=== PATIENT | male | born 1960 | race Two or more races ===

== ENCOUNTER 2024-09-27 15:58 | Inpatient (IN) | payer MEDICAID, OTHER ==
[~2024-09-27] VITALS: Ht 172.7 cm; Wt 105.0 kg
[2024-09-27] MEDS: methylPREDNISolone SOD SUCC 125 MG/2 ML VL IV ONE (17:00)
--- NOTE | 2024-09-27 17:09 | ED.PDOC ---
SOB-HPI HPI Comments 64Y M presents to ED via EMS for chief complaint SOB with wheezing. Pt denies chest pain but does report chronic productive cough. He denies fever, or edema. Pt stated symptoms began while he was smoking a cigarette. Allergies include PCN. Chief Complaint: Shortness of Breath Time Seen by MD: 16:50 Primary Care Provider: none Reviewed notes: Medications, Allergies Information Source: Patient, Emergency Med Personnel Mode of Arrival: EMS Brought in by: EMS Severity: Moderate Timing: Days Duration: Since onset Context: At Rest PE Risk Factors: None History of: Other Prehospital treatment: 12 Lead EKG, Oxygen Modifying Factors: Nothing Associated Signs and Symptoms: Wheeze, Cough If cough with SOB: Non-Productive Past Medical History Past Medical History (Other): Schizoaffective disorder, dyslipidemia Surgical History: Unobtainable Family History Family History: Unknown Social History Smoker: Cigarettes Alcohol: Unknown Drugs: Unknown Lives In: Unknown Constitutional: denies: chills, diaphoresis, fatigue, fever, malaise, sweats, weakness, others EENTM: denies: blurred vision, double vision, ear bleeding, ear discharge, ear drainage, ear pain, ear ringing, eye pain, eye redness, hearing loss, mouth pain, mouth swelling, nasal discharge, nose bleeding, nose congestion, nose pain, photophobia, tearing, throat pain, throat swelling, voice changes, others Respiratory: reports: shortness of breath, wheezing; denies: cough, hemoptysis, orthopnea, SOB at rest, SOB with excertion, stridor, others Cardiovascular: denies: chest pain, dizzy spells, diaphoresis, Dyspnea on exertion, edema, irregular heart beat, left arm pain, lightheadedness, palpitations, PND, syncope, others Gastrointestinal: denies: abdomen distended, abdominal pain, blood streaked bowels, constipated, diarrhea, dysphagia, difficulty swallowing, hematemesis, melena, nausea, poor appetite, poor fluid intake, rectal bleeding, rectal pain, vomiting, others Genitourinary: denies: burning, dysuria, flank pain, frequency, hematuria, incontinence, penile discharge, penile sore, pain, testicle pain, testicle swelling, urgency, others Neurological: denies: dizziness, fainting, headache, left sided numbness, left sided weakness, numbness, paresthesia, pre-existing deficit, right sided num bness, right sided weakness, seizure, speech problems, tingling, tremors, weakness, others Musculoskeletal: denies: back pain, gout, joint pain, joint swelling, muscle pain, muscle stiffness, neck pain, others Integumetry: denies: bruises, change in color, change in hair/nails, dryness, laceration, lesions, lumps, rash, wounds, others Allergic/Immunocompromised: denies: Difficulty Healing, Frequent Infections, Hives, Itching, others Hematologic/Lymphatic: denies: anemia, blood clots, easy bleeding, easy bruising, swollen glands, others Endocrine: denies: excessive hunger, excessive sweating, excessive thirst, excessive urination, flushing, intolerance to cold, intolerance to heat, unexplained weight gain, unexplained weight loss, others Psychiatric: denies: anxiety, bipolar disorder, depression, hopeless, panic disorder, schizophrenia, sleepless, suicidal, others All Other Systems: Reviewed and Negative Physical Exam General Appearance: Mild Distress HEENT: Normal ENT Inspection Neck: Full Range of Motion, Normal Inspection Respiratory: No Accessory Muscle Use, Respiratory Distress (Mild), Rhonchi, Wheezing Cardiovascular: No Edema, No JVD, Regular Rate/Rhythm Breast Exam: Deferred Gastrointestinal: Non Tender, Soft Genitalia: Deferred Pelvic: Deferred Rectal: Deferred Extremities: No calf tenderness, Normal inspection, Normal range of motion, Non-tender, No pedal edema Neurologic: Alert, No Motor Deficits, Normal Affect, Normal Mood, No Sensory Deficits Cerebellar Function: NOT DONE Reflexes: NOT DONE Skin: Dry, Normal Color, Warm Lymphatic: NOT DONE EKG EKG : Comments Rhythm strip independently interpreted by me: Sinus rhythm, rate 88, no ectopy. Was a procedure done? Was a procedure done?: No Differential Dx Differential Diagnosis: Asthma, Bronchitis, CHF, COPD, Hyperventilation, Pneumonia, URI X-Ray, Labs, Meds, VS Vital Signs Date Time Temp Pulse Resp B/P (MAP) Pulse Ox O2 Delivery O2 Flow Rate FiO2 09/27/24 18:03 80 09/27/24 18:01 79 14 153/97 (115) 94 09/27/24 17:34 18 93 Room Air* 0 21 21 09/27/24 16:33 83 20 145/82 (103) 96 09/27/24 16:20 98.6 88 20 158/90 (112) 99 Lab Test 09/27/24 19:40 09/27/24 18:39 09/27/24 17:32 Range/Units Lactic Acid Level Pending 2.1 H 0.4-2.0 mmol/L Troponin I High Sensitivity < 3 L < 3 L </=54 ng/L White Blood Count 7.5 4.4-10.8 10^3/uL Red Blood Count 5.51 4.5-5.90 10^6/uL Hemoglobin 16.3 13.5-17.5 g/dL Hematocrit 48.6 41.0-53.0 % Mean Corpuscular Volume 88.3 80.0-100.0 fL Mean Corpuscular Hemoglobin 29.6 28.0-32.0 pg Mean Corpuscular Hemoglobin Concent 33.5 32.0-36.0 g/dL Red Cell Distribution Width 14.2 11.8-14.3 % Platelet Count 126 L 140-450 10^3/uL Mean Platelet Volume 8.2 6.9-10.8 fL Neutrophils (%) (Auto) 53.9 37.0-80.0 % Lymphocytes (%) (Auto) 34.2 10.0-50.0 % Monocytes (%) (Auto) 10.1 0.0-12.0 % Eosinophils (%) (Auto) 1.5 0.0-7.0 % Basophils (%) (Auto) 0.3 0.0-2.0 % Neutrophils # (Auto) 4.0 1.6-8.6 10 ^3/uL Lymphocytes # (Auto) 2.6 0.4-5.4 10 ^3/uL Monocytes # (Auto) 0.8 0-1.3 10 ^3/uL Eosinophils # (Auto) 0.1 0-0.8 10 ^3/uL Basophils # (Auto) 0 0-0.2 10 ^3/uL Nucleated Red Blood Cells 0.1 % Sodium Level 143 136-145 mmol/L Potassium Level 4.1 3.5-5.1 mmol/L Chloride Level 110 H 98-107 mmol/L Carbon Dioxide Level 27 20-31 mmol/L Anion Gap 6 5-15 Blood Urea Nitrogen 12 9-23 mg/dL Creatinine 0.85 0.700-1.30 mg/dL Glomerular Filtration Rate Calc 98 >90 mL/min BUN/Creatinine Ratio 14.1 10.0-20.0 Serum Glucose 98 74-106 mg/dL Calcium Level 9.1 8.7-10.4 mg/dL B-Type Natriuretic Peptide 10.59 0-100 pg/mL Current Medications Medications (Trade) Dose Ordered Sig/Kaye Route Start Time Stop Time Status Last Admin Albuterol (Ventolin Medneb) 5 mg ONCE ONCE NEB 09/27/24 17:00 09/27/24 17:02 DC 09/27/24 17:34 Ipratropium [place] (Atrovent Medneb) 0.5 mg ONCE ONCE NEB 09/27/24 17:00 09/27/24 17:02 DC 09/27/24 17:34 PROCEDURE(s): CXRP - CHEST PORTABLE REASON: sob ORDER NUMBER(s): [id number], ACCESSION NUMBER(s): [id number] CHEST RADIOGRAPH Indication:sob Technique: Single frontal view of the chest was obtained Comparison: None FINDINGS: Lines and Tubes: None Lungs: No focal consolidation. Bronchovascular crowding due to low lung volumes. Pleura: No effusion. No pneumothorax. Cardiomediastinal contours: Unremarkable Bones: No acute osseous abnormality. IMPRESSION: Bronchovascular crowding due to low lung volumes. Underlying mild pulmonary vascular congestion can not be excluded. X-Ray, Labs, Meds, VS Comment 64-year-old male with history of schizoaffective disorder and dyslipidemia presenting with shortness breath after smoking a cigarette Vitals remarkable for BP 158/90, oxygen saturation 93% on room air Exam remarkable for mild respiratory distress, audible wheezes, scattered rhonchi Rhythm strip independently interpreted by me: Sinus rhythm, rate 88, no ectopy. Chest x-ray IMPRESSION: Bronchovascular crowding due to low lung volumes. Underlying mild pulmonary vascular congestion can not be excluded. Patient treated with the following in the ED: Albuterol 5 mg/Atrovent 0.5 mg nebulized Solu-Medrol 125 mg IV and 1 L 0.9 normal saline IV bolus were ordered, however the patient refused. The patient is conserved, so we are awaiting call back from facility conservator for permission to administer IV meds despite patient's refusal. On re-evaluation, patient is sleeping and saturating 90% on room air. He is not in respiratory distress. Other vitals are stable. Plan is to admit the patient for respiratory support. Time of 1ST Reevaluation: 17:20 Reevaluation 1ST: Unchanged Time of 2ND Reevaluation: 20:08 Reevaluation 2ND: Improved Patient Education/Counseling: Diagnosis, Treatment Family Education/Counseling: No Family Present Departure 1 Departure Time of Disposition: 20:08 Impression: Primary Impression: Hypoxia Additional Impression: Bronchospasm with bronchitis, acute Disposition: 09 ADMITTED INPATIENT Admit to: Tele Condition: Guarded Critical Care Note Critical Care Time?: No Stability Stability form required: No Heart Score Heart Score: Heart Score Response (Comments) Value History N/A 0 EKG N/A 0 Age N/A 0 Risk Factors N/A 0 Troponin N/A 0 Total 0 I personally scribed for GWENDOLYN REYES MD ([email or web address]) on 09/27/24 at 17:09. Electronically submitted by Danna Subramanian ([facility] I personally scribed for GWENDOLYN REYES MD ([email or web address]) on 09/27/24 at 19:04. Electronically submitted by Danna Subramanian ([facility]). GWENDOLYN REYES MD Sep 27, 2024 17:09
[2024-09-27] MEDS: IPRATROPIUM BROM 0.5 MG/2.5ML INH SOL NEB ONE (17:34)
[2024-09-27] MEDS: ALBUTEROL SULF 2.5 MG/0.5ML(0.5%) NEB SOLN NEB ONE (17:34)
[2024-09-27 17:45] LABS: Basophils # (auto) 0 10 ^3/uL (0-0.2); Basophils % (auto) 0.3 % (0.0-2.0); Eosinophils # (auto) 0.1 10 ^3/uL (0-0.8); Eosinophils % (auto) 1.5 % (0.0-7.0); Hematocrit 48.6 % (41.0-53.0); Hemoglobin 16.3 g/dL (13.5-17.5); Lymphocytes # (auto) 2.6 10 ^3/uL (0.4-5.4); Lymphocytes % (auto) 34.2 % (10.0-50.0); Mean Corpuscular Hemoglobin 29.6 pg (28.0-32.0); Mean Corpuscular Hgb Conc. 33.5 g/dL (32.0-36.0); Mean Corpuscular Volume 88.3 fL (80.0-100.0); Monocytes # (auto) 0.8 10 ^3/uL (0-1.3); Monocytes % (auto) 10.1 % (0.0-12.0); Neutrophils % (auto) 53.9 % (37.0-80.0); Nucleated Red Blood Cells % 0.1 %; Platelet Count (auto) 126 10^3/uL (140-450); Red Blood Cells 5.51 10^6/uL (4.5-5.90); Red Cell Distribution Width 14.2 % (11.8-14.3); White Blood Cell 7.5 10^3/uL (4.4-10.8)
[2024-09-27 17:52] LABS: Chloride 110 mmol/L (98-107); Potassium 4.1 mmol/L (3.5-5.1); Sodium 143 mmol/L (136-145)
[2024-09-27 17:53] LABS: Anion Gap 6 (5-15); Calcium 9.1 mg/dL (8.7-10.4); Carbon Dioxide 27 mmol/L (20-31)
[2024-09-27 17:58] LABS: BUN/Creatinine Ratio 14.1 (10.0-20.0); Blood Urea Nitrogen 12 mg/dL (9-23); Glucose 98 mg/dL (74-106)
[2024-09-27 18:00] LABS: Lactic Acid w/Reflex 2.1 mmol/L (0.4-2.0)
--- NOTE | 2024-09-27 18:08 | DVH ---
CHEST RADIOGRAPH Indication:sob Technique: Single frontal view of the chest was obtained Comparison: None FINDINGS: Lines and Tubes: None Lungs: No focal consolidation. Bronchovascular crowding due to low lung volumes. Pleura: No effusion. No pneumothorax. Cardiomediastinal contours: Unremarkable Bones: No acute osseous abnormality. IMPRESSION: Bronchovascular crowding due to low lung volumes. Underlying mild pulmonary vascular congestion can not be excluded.
[2024-09-27 19:50] VITALS: PULSE 80; RESP 23; O2SAT 92
[2024-09-27] MEDS: SODIUM CHLORIDE 0.9% 1,000 ML IV ONE (21:12)
[2024-09-27 21:29] LABS: Urine Bacteria None Seen /hpf (None Seen)
[2024-09-27 21:34] LABS: Urine Blood Negative /uL (Negative); Urine Clarity Clear (Clear); Urine Color Light-Yellow (Yellow); Urine Protein, UAD Negative (Negative); Urine Specific Gravity 1.014 (1.001-1.035); Urine Urobilinogen Normal (Negative); Urine WBC <1 /hpf (0 - 3)
[2024-09-28] MEDS ORDERED: NITROGLYCERIN 0.4 MG SL TAB SL PRN (04:30)
[2024-09-28] MEDS ORDERED: MORPHINE SULFATE INJ 2 MG/ml SYRG IV PRN (04:30)
[2024-09-28] MEDS ORDERED: ONDANSETRON HCL 4 MG/2 ML VIAL IV PRN (04:30)
[2024-09-28] MEDS ORDERED: ACETAMINOPHEN 325 MG TAB PO PRN (04:30)
[2024-09-28] MEDS ORDERED: ALBUTEROL SULF 2.5 MG/0.5ML(0.5%) NEB SOLN NEB PRN (04:30)
[2024-09-28] MEDS ORDERED: IPRATROPIUM BROM 0.5 MG/2.5ML INH SOL NEB PRN (04:30)
--- NOTE | 2024-09-28 04:40 | DVHHP2 ---
History of Present Illness Reason for Visit: Shortness of breath History of Present Illness 64-year-old male presents for evaluation of shortness of the breath. Patient presents with a two day history of worsening shortness for breath with associated nonproductive cough. No fever or chills reported. Denies chest pain or palpitations. No GI or symptoms. Past Medical History COPD, dyslipidemia and schizoaffective disorder Past Surgical History None Family History Unknown Smoke: <1 pack per day ALCOHOL: none Drugs: None Review of Systems Review of Systems Review of systems are negative otherwise dressing HPI. Allergies: Coded Allergies: Penicillins (Verified Allergy, Unknown, 09/27/24) Exam Vital Signs Vital Signs Date Time Temp Pulse Resp B/P (MAP) Pulse Ox O2 Delivery O2 Flow Rate FiO2 09/27/24 22:00 77 14 135/95 (108) 94 09/27/24 19:50 Room Air* 0 21 09/27/24 19:50 98.8 98.8 Exam Gen: 64-year-old male in mild distress, obese Skin: Warm, dry, normal color and texture, no rash. HEENT: Normocephalic atraumatic, mucous membranes moist and pink. Neck: Cervical and supraclavicular nodes normal without enlargement, trachea is midline, thyroid gland is normal without masses. Pulmonary: Bilateral wheeze Cardiac: Regular rate and rhythm. No murmur Abdomen: Soft, nontender, nondistended, bowel sounds present all 4 quadrants, no guarding, no rigidity, no organomegaly. Extremities: No cyanosis, clubbing, no edema Neuro: Cranial nerves II through XII grossly intact, normal affect and speech, no focal motor deficits. Labs/Xrays ORDERING PHYSICIAN: GWENDOLYN REYES MD PROCEDURE(s): CXRP - CHEST PORTABLE REASON: sob ORDER NUMBER(s): [id number], ACCESSION NUMBER(s): [id number] CHEST RADIOGRAPH Indication:sob Technique: Single frontal view of the chest was obtained Comparison: None FINDINGS: Lines and Tubes: None Lungs: No focal consolidation. Bronchovascular crowding due to low lung volumes. Pleura: No effusion. No pneumothorax. Cardiomediastinal contours: Unremarkable Bones: No acute osseous abnormality. IMPRESSION: Bronchovascular crowding due to low lung volumes. Underlying mild pulmonary vascular congestion can not be excluded. Labs Test 09/27/24 20:41 09/27/24 19:40 09/27/24 18:39 09/27/24 17:32 Range/Units Urine Color Light-yellow Yellow Urine Clarity Clear Clear Urine pH 6.0 5.0-9.0 Urine Specific Stacy 1.014 1.001-1.035 Urine Protein Negative Negative Urine Ketones Negative Negative Urine Blood Negative Negative /uL Urine Nitrite Negative Negative Urine Bilirubin Negative Negative Urine Urobilinogen Normal Negative mg/dL Urine Leukocyte Esterase Negative Negative /uL Urine RBC <1 0 - 3 /hpf Urine WBC <1 0 - 3 /hpf Urine Squamous Epithelial Cells None seen <5 /hpf Urine Bacteria None seen None Seen /hpf Urine Glucose Normal Normal mg/dL Lactic Acid Level 2.4 *H 0.4-2.0 mmol/L Troponin I High Sensitivity < 3 L </=54 ng/L White Blood Count 7.5 4.4-10.8 10^3/uL Red Blood Count 5.51 4.5-5.90 10^6/uL Hemoglobin 16.3 13.5-17.5 g/dL Hematocrit 48.6 41.0-53.0 % Mean Corpuscular Volume 88.3 80.0-100.0 fL Mean Corpuscular Hemoglobin 29.6 28.0-32.0 pg Mean Corpuscular Hemoglobin Concent 33.5 32.0-36.0 g/dL Red Cell Distribution Width 14.2 11.8-14.3 % Platelet Count 126 L 140-450 10^3/uL Mean Platelet Volume 8.2 6.9-10.8 fL Neutrophils (%) (Auto) 53.9 37.0-80.0 % Lymphocytes (%) (Auto) 34.2 10.0-50.0 % Monocytes (%) (Auto) 10.1 0.0-12.0 % Eosinophils (%) (Auto) 1.5 0.0-7.0 % Basophils (%) (Auto) 0.3 0.0-2.0 % Neutrophils # (Auto) 4.0 1.6-8.6 10 ^3/uL Lymphocytes # (Auto) 2.6 0.4-5.4 10 ^3/uL Monocytes # (Auto) 0.8 0-1.3 10 ^3/uL Eosinophils # (Auto) 0.1 0-0.8 10 ^3/uL Basophils # (Auto) 0 0-0.2 10 ^3/uL Nucleated Red Blood Cells 0.1 % Sodium Level 143 136-145 mmol/L Potassium Level 4.1 3.5-5.1 mmol/L Chloride Level 110 H 98-107 mmol/L Carbon Dioxide Level 27 20-31 mmol/L Anion Gap 6 5-15 Blood Urea Nitrogen 12 9-23 mg/dL Creatinine 0.85 0.700-1.30 mg/dL Glomerular Filtration Rate Calc 98 >90 mL/min BUN/Creatinine Ratio 14.1 10.0-20.0 Serum Glucose 98 74-106 mg/dL Calcium Level 9.1 8.7-10.4 mg/dL B-Type Natriuretic Peptide 10.59 0-100 pg/mL Assessment/Plan Assessment/Plan Assessment Acute on chronic hypoxic respiratory failure COPD Schizoaffective disorder Plan Admit the patient to telemetry to the hospitalist Christian Quinteros Resume home medications Continue treatment per orders. Plan discussed with: Patient My Orders Orders - WM CUELLAR Procedure Category Date Status Time Albuterol Medneb PHA 09/28/24 Transmitted (Ventolin Medneb) 04:30 D-Dimer LAB 09/28/24 Transmitted 04:30 Ipratropium Medneb PHA 09/28/24 Transmitted (Atrovent Medneb) 04:30 Olanzapine Tablet PHA 09/28/24 Transmitted (Zyprexa Tablet) 10:00 Trazodone Hcl PHA 09/28/24 Transmitted (Desyrel) 22:00 Atorvastatin (Lipitor) PHA 09/28/24 Transmitted 22:00 Levofloxacin Levaquin PHA 09/28/24 Transmitted 04:30 Basic Metabolic Panel LAB 09/28/24 Transmitted 04:30 Basic Metabolic Panel LAB 09/29/24 Verified 04:00 Complete Blood Count LAB 09/28/24 Transmitted 04:30 Admit ADMIT 09/28/24 Transmitted 04:30 Ondansetron Hcl PHA 09/28/24 Transmitted (Zofran) 04:30 Cardiac DIET 09/28/24 Transmitted Diet-2gna,Lofat,Lochol Breakfast Condition: Fair SELINA 09/28/24 Transmitted 04:30 Acetaminophen Tablet PHA 09/28/24 Transmitted (Tylenol Tablet) 04:30 Bedrest With Bathroom [facility] 09/28/24 Transmitted Privileg 04:30 Nitroglycerin [facility] 09/28/24 Transmitted Sublingual (Ntrostat 04:30 Morphine Sulfate [facility] 09/28/24 Transmitted Injection 04:30 Stat Ekg For Chest [facility] 09/28/24 Transmitted Pain 04:30 Notify Md Of Changes [facility] 09/28/24 Transmitted From Base 04:30 Reaming Machine Tender For [facility] 09/28/24 Transmitted 24 Hours 04:30 Emergency Dysrhythmia [facility] 09/28/24 Transmitted Protocol 04:30 Rhythm Strips Once [facility] 09/28/24 Transmitted Every Shift 04:30 Oxygen By Nasal 09/28/24 Transmitted Cannula 04:30 Date of Service: Sep 28, 2024 Billing Provider: WM CUELLAR Common Visit Codes: [id number] INP/OBS CARE (HIGH) WM CUELLAR Sep 28, 2024 04:40
[2024-09-28 04:58] LABS: Basophils # (auto) 0.1 10 ^3/uL (0-0.2); Basophils % (auto) 0.8 % (0.0-2.0); Eosinophils # (auto) 0.1 10 ^3/uL (0-0.8); Eosinophils % (auto) 1.8 % (0.0-7.0); Hematocrit 46.8 % (41.0-53.0); Hemoglobin 15.8 g/dL (13.5-17.5); Lymphocytes # (auto) 2.6 10 ^3/uL (0.4-5.4); Mean Corpuscular Hemoglobin 30.2 pg (28.0-32.0); Mean Corpuscular Hgb Conc. 33.8 g/dL (32.0-36.0); Mean Corpuscular Volume 89.3 fL (80.0-100.0); Monocytes # (auto) 0.8 10 ^3/uL (0-1.3); Monocytes % (auto) 10.2 % (0.0-12.0); Neutrophils # (auto) 4.3 10 ^3/uL (1.6-8.6); Neutrophils % (auto) 54.2 % (37.0-80.0); Nucleated Red Blood Cells % 0.1 %; Platelet Count (auto) 127 10^3/uL (140-450); Red Blood Cells 5.24 10^6/uL (4.5-5.90); Red Cell Distribution Width 14.4 % (11.8-14.3)
[2024-09-28] MEDS: levoFLOXacin 500MG 100 ML IV SCH (05:00)
[2024-09-28 05:42] LABS: Chloride 111 mmol/L (98-107); Potassium 4.4 mmol/L (3.5-5.1); Sodium 144 mmol/L (136-145)
[2024-09-28 05:43] VITALS: O2SAT 95
[2024-09-28 05:43] LABS: Anion Gap 6 (5-15); Carbon Dioxide 27 mmol/L (20-31)
[2024-09-28 05:44] LABS: Calcium 8.8 mg/dL (8.7-10.4)
[2024-09-28 05:48] LABS: BUN/Creatinine Ratio 10.6 (10.0-20.0); Blood Urea Nitrogen 9 mg/dL (9-23); Glucose 96 mg/dL (74-106)
[2024-09-28 08:01] VITALS: TEMP 98.5
[2024-09-28 08:04] VITALS: PULSE 75; RESP 12; O2SAT 94
[2024-09-28 08:27] LABS: Rapid Influenza A Negative (Negative); Rapid Influenza B Negative (Negative)
[2024-09-28 08:28] LABS: COVID19 ANTIGEN SOFIA FIA NEGATIVE (NEGATIVE)
[2024-09-28] MEDS: OLANZapine 5 MG TAB PO SCH (11:11)
[2024-09-28 13:04] VITALS: BP 133/95; PULSE 83; RESP 19; O2SAT 92
[2024-09-28] MEDS ORDERED: ATORVASTATIN 20 MG TAB PO SCH (22:00)
[2024-09-28] MEDS ORDERED: traZODone HCL 50 MG TAB PO SCH (22:00)
== END 2024-09-28 12:47 | disposition left against medical advice (07) | DRG 145 ==
LOC: EDBD 15:58 → ER 15:58 → TELE 09-28 04:36
PROVIDERS: ADMIT Nurse Practitioner; ATTEND Internal Medicine
DX: J20.9 Acute bronchitis, unspecified (principal); J96.21 Acute and chronic respiratory failure with hypoxia; F25.9 Schizoaffective disorder, unspecified; J44.9 Chronic obstructive pulmonary disease, unspecified; Z53.29 Procedure and treatment not carried out because of patient's decision for other reasons; E78.5 Hyperlipidemia, unspecified; F17.210 Nicotine dependence, cigarettes, uncomplicated; Z88.0 Allergy status to penicillin; Z79.899 Other long term (current) drug therapy
CPT/HCPCS: 36415; 71045; 80048; 81001; 83605; 83880; 84484; 85025; 85379; 87426; 87804; 94640; 96360; G0378; J1956